=== PATIENT | female | born 1940 | race Caucasian/White ===

== ENCOUNTER 2020-06-30 10:11 | Emergency (ER) | payer MEDICARE, MEDICAID ==
[~2020-06-30] VITALS: Ht 160 cm; Wt 51.3 kg
--- NOTE | 2020-06-30 10:40 | PHYS DOC ---
Adult General Chief Complaint Chief Complaint: LOWER EXT PAIN HPI HPI Patient is a pleasant 80-year-old female who presents for DVT. Patient is well cared for in outpatient setting by her PCP, Dr. Colunga, who ordered bilateral lower extremity ultrasound study for lower extremity pain, left> right. Patient had said study performed today and findings of a partially occlusive DVT in the left popliteal vein was found. Findings were relayed back to PCP who recommended patient be seen in the ED for evaluation. Today, patient has no acute complaints besides ongoing lower extremity pain as described. Denies any fever, recent COVID contacts, recent travel, recent long distance travel, hemoptysis, shortness of breath or other concerning complaints or exposures. Patient denies any prior history of active hemorrhage, history of low platelets, or history of intragraft cerebral hemorrhage. She is typically ambulatory at home with a cane, has not suffered any falls in the last 12 months, and lives at home with her daughter. She is able to perform all activities of daily living without issue and makes her own medical decisions. Review of Systems Review of Systems Fourteen body systems of review of systems have been reviewed. See HPI for pertinent positives and negative responses, other [place] all other systems are negative, non-pertinent or non-contributory Allergies Allergies Allergies Coded Allergies Type Severity Reaction Last Updated Verified No Known Drug Allergies 06/30/20 No Physical Exam Physical Exam Constitutional: Well developed, thin appearing, looks stated age, no acute distress, non-toxic appearance. HENT: Normocephalic, atraumatic, bilateral external ears normal, oropharynx moist, no oral exudates, nose normal. Eyes: PERRLA, EOMI, conjunctiva normal, no discharge. Neck: Normal range of motion, no tenderness, supple, no stridor. Cardiovascular:Heart rate regular, sinus rhythm, no murmurs rubs or gallops Lungs & Thorax: Bilateral breath sounds clear to auscultation Abdomen: Bowel sounds normal, soft, no tenderness, no masses, no pulsatile masses. Nonsurgical abdomen, no peritoneal signs Skin: Warm, dry, no erythema, no rash. Back: No tenderness, no CVA tenderness. Extremities: No cyanosis, no clubbing, ROM intact, no edema. No warmth, erythema, or other gross abnormalities of patient's lower extremities on palpation and visual observation. Negative Homans sign bilaterally. Ambulatory on arrival with a cane Neurologic: Alert and oriented X 3, grossly normal motor & sensory function, no focal deficits noted. Psychologic: Affect normal, judgement normal, mood normal. EKG EKG [] Radiology/Procedures Radiology/Procedures PROCEDURE: VENOUS LOWER EXT BILATERAL EXAM: Bilateral lower extremity venous Doppler. HISTORY: Bilateral lower extremity pain/swelling. COMPARISON: None. FINDINGS: Grayscale and Doppler analysis of the bilateral lower extremity deep venous systems was performed with graded compression and augmentation. The common femoral, greater saphenous, superficial femoral, popliteal and calf veins were assessed. A free-floating thrombus is identified within the left popliteal vein without occlusion. It is of mixed echogenicity, suggesting some degree of organization. IMPRESSION: 1. 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 2. No evidence of DVT in the contralateral (right) lower extremity deep veins. Discussed with Dr. Colunga by telephone at 10:10 AM on June 30, 2020 Electronically signed by: Chela Sylvester MD (06/30/2020 10:11 AM) [id number] Course & Med Decision Making Course & Med Decision Making Patient self ambulated back to her room and I saw her on immediate ED arrival Vital signs obtained and grossly unremarkable Comprehensive history and physical exam performed and non-concerning for emergent pathology Outpatient radiology studies reviewed in addition to pertinent labs studies performed here in the ED Case discussed with PCP regarding proposed plan of care. I feel patient is safe for discharge with oral anticoagulation given that she is ambulatory, hemodynamically stable, does not have renal failure, appears able to administer anticoagulation with appropriate monitoring and has close outpatient follow-up. 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 Xarelto will be started. Patient took initial 15 mg dose here in ER and tolerated it well. Good understanding of medication reported by patient, strict return precautions discussed with good understanding, all questions and concerns addressed prior to ED departure Patient to follow-up with her PCP in upcoming 2 to 7 days for ER follow-up. She will need to have a subsequent prescription for 20 mg daily Xarelto prescribed by PCP after her 21 days of 15 mg twice daily Dragon Disclaimer Dragon Disclaimer This electronic medical record was generated, in whole or in part, using a voice recognition dictation system. Departure Departure: Impression: Primary Impression: Deep vein thrombosis (DVT) of left lower extremity Disposition: HOME/RESIDENCE PRIOR TO ADM Condition: STABLE Referrals: DARYL COLUNGA MD (PCP) Patient Instructions: Rivaroxaban oral tablets Additional Instructions: As discussed prior to ER departure, you are being treated for a left leg deep vein thrombosis You have been prescribed a blood thinner called Xarelto Instructions for treatment of your left leg thrombosis are the following: -15 mg twice daily with food for 21 days followed by 20 mg once daily with food. -I have prescribed you the first 21 days of this medication, you will need to see your primary care physician to get the subsequent prescription of 20 mg daily You will need to take this for at least 3 months. Need for extended use will be discussed with your PCP at outpatient follow-up Scripts Rivaroxaban (XARELTO) 15 Mg Tablet 1 TAB PO BID for DVT for 21 Days, #42 TAB 0 Refills Prov: TRION MELENDEZ DO 06/30/20 Justification of Admission: Justification of Admission: Justification of Admission Dx: N/A TRINO MELENDEZ DO Jun 30, 2020 10:39
[2020-06-30 11:06] LABS: BASO % 1 % (0-3); EOS # 0.2 x10^3/uL (0.0-0.7); EOS % 3 % (0-3); HEMATOCRIT 37.2 % (36.0-47.0); HEMOGLOBIN 12.7 g/dL (12.0-15.5); LYMPH # 1.2 x10^3/uL (1.0-4.8); LYMPH % 19 % (24-48); MEAN CORPUSCULAR HEMOGLOBIN 32 pg (25-35); MEAN CORPUSCULAR HGB CONC 34 g/dL (31-37); MEAN CORPUSCULAR VOLUME 94 fL (79-100); MONO # 0.4 x10^3/uL (0.0-1.1); MONO % 7 % (0-9); NEUT # 4.5 x10^3uL (1.8-7.7); NEUT % 71 % (31-73); PLATELET COUNT 230 x10^3/uL (140-400); RED BLOOD COUNT 3.97 x10^6/uL (3.50-5.40); RED CELL DISTRIBUTION WIDTH 14.1 % (11.5-14.5); WHITE BLOOD COUNT 6.3 x10^3/uL (4.0-11.0)
[2020-06-30 11:14] LABS: CALCIUM 9.9 mg/dL (8.5-10.1); GFR 53.1; POTASSIUM 4.3 mmol/L (3.5-5.1)
[2020-06-30 11:19] LABS: ALBUMIN 3.3 g/dL (3.4-5.0); ALBUMIN/GLOBULIN RATIO 0.9 (1.0-1.7); TOTAL BILIRUBIN 0.6 mg/dL (0.2-1.0); TOTAL PROTEIN 6.8 g/dL (6.4-8.2)
[2020-06-30] MEDS ORDERED: RIVAROXABAN 15 MG TABLET. PO ONE (11:30)
[2020-06-30] MEDS ORDERED: RIVA15TA PO (11:36)
[2020-06-30 12:20] VITALS: BP 154/61
== END 2020-06-30 12:20 | disposition home or self-care (01) ==
LOC: ER 10:11
DX: I82.432 Acute embolism and thrombosis of left popliteal vein (principal); M79.604 Pain in right leg
CPT/HCPCS: 36415; 80053; 85025; 85610; 85730; 99284

== ENCOUNTER → 2020-06-30 | Outpatient (CLI) | payer MEDICARE, MEDICAID ==
[~2020-06-30] MED LIST: RIVA15TA PO
--- NOTE | 2020-06-30 10:14 | RAD ---
EXAM: Bilateral lower extremity venous Doppler. HISTORY: Bilateral lower extremity pain/swelling. COMPARISON: None. FINDINGS: Grayscale and Doppler analysis of the bilateral lower extremity deep venous systems was performed with graded compression and augmentation. The common femoral, greater saphenous, superficial femoral, popliteal and calf veins were assessed. A free-floating thrombus is identified within the left popliteal vein without occlusion. It is of mixed echogenicity, suggesting some degree of organization. IMPRESSION: 1. 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 2. No evidence of DVT in the contralateral (right) lower extremity deep veins. Discussed with Dr. Blair by telephone at 10:10 AM on June 30, 2020 Electronically signed by: Chela Sylvester MD (06/30/2020 10:11 AM) [id number]
== END | disposition home or self-care (01) ==
LOC: US 09:18
PROVIDERS: ATTEND Family Medicine
DX: I82.432 Acute embolism and thrombosis of left popliteal vein (principal); R60.0 Localized edema
CPT/HCPCS: 93970